=== PATIENT | male | born 1990 | race Caucasian/White ===

== ENCOUNTER → 2021-03-17 | Outpatient (CLI) | payer OTHER ==
[~2021-03-17] MED LIST: ATIVAN 0.50.5 MG/TAB PO
== END ==
LOC: COL.RAD 10:24
DX: G93.89 Other specified disorders of brain (principal); G43.909 Migraine, unspecified, not intractable, without status migrainosus
CPT/HCPCS: Q9967

== ENCOUNTER 2021-03-21 04:54 | Emergency (ER) | payer OTHER ==
[~2021-03-21] VITALS: Ht 177.8 cm; Wt 75.0 kg
[2021-03-21 05:00] VITALS: BP 119/70; TEMP 97
[2021-03-21 05:54] LABS: BASO % 0.5 % (0.0-2.0); EOS # 0.2 (0.0-0.7); EOS % 4.3 % (0-4.0); GRAN # 2.4 (1.4-6.5); HEMATOCRIT 42.9 % (42.0-52.0); HEMOGLOBIN 15.4 g/dl (13.5-18.0); LYMPH # 1.2 (1.2-3.4); LYMPH % 29.3 % (20.0-51.0); MEAN CELL VOLUME 83 fl (80.0-100.0); MEAN CORPUSCULAR HEMOGLOBIN 30 pg (27.0-31.0); MEAN CORPUSCULAR HGB CONC 36 g/dl (33.0-37.0); MEAN PLATELET VOLUME 9.7 fl (7.4-10.4); MONO # 0.4 (0.1-0.6); MONO % 8.7 % (1.7-9.3); PLATELET COUNT 195 K/mm3 (130-400); RED BLOOD COUNT 5.16 M/mm3 (4.20-5.60); REDCELL DISTRIBUTION WIDTH-CV 11.9 % (11.5-14.5)
[2021-03-21 05:59] LABS: CALCIUM 9.4 mg/dL (8.4-10.2); CREATININE, serum 1.21 (0.66-1.25); POTASSIUM 4.3 mmol/L (3.4-5.0)
[2021-03-21 06:49] VITALS: PULSE 62
== END 2021-03-21 06:49 | disposition home or self-care (01) ==
LOC: COL.ER 04:54
PROVIDERS: Emergency Medicine
DX: H53.8 Other visual disturbances (principal)
CPT/HCPCS: J1200; J1885; J2765; J7030

== ENCOUNTER → 2021-09-08 | Outpatient (CLI) | payer OTHER | LOC: COL.RAD 06:56 | DX: H93.A9 Pulsatile tinnitus, unspecified ear (principal) | CPT/HCPCS: A9575 ==